=== PATIENT | female | born 1990 | race Caucasian/White ===

== ENCOUNTER 2016-12-13 03:44 | Inpatient (IN) | payer MEDICAID, OTHER ==
[2016-12-13] VITALS (11 sets, daily range): BP systolic 121–142; BP diastolic 66–84
[~2016-12-13] VITALS: Ht 172.7 cm; Wt 101.0 kg
[2016-12-13] MEDS ORDERED: PRENTAB9 PO (05:06)
[2016-12-13] MEDS ORDERED: BUTORPHANOL 2 MG/ML INJ (J0595) IV ONE (06:15)
[2016-12-13] MEDS ORDERED: PROMETHAZINE INJ 25 MG/ML VIAL (J2550) IV ONE (06:15)
[2016-12-13 06:48] LABS: MEAN CORPUSCULAR HEMOGLOBIN 31.5 pg (27.0-33.0); MEAN CORPUSCULAR HGB CONC 35.1 g/dl (32.0-36.5); MEAN CORPUSCULAR VOLUME 89.8 fl (80.0-96.0); RED CELL DISTRIBUTION WIDTH 13.2 % (11.5-14.5); WHITE BLOOD COUNT 13.7 K/mm3 (4.0-10.0)
--- NOTE | 2016-12-13 07:32 | HPE ---
DATE OF ADMISSION: 12/13/2016 HISTORY: Pretty is a 26-year-old, 3, para 1-0-1-1, at 41 weeks gestation with an expected date of confinement (EDC) of 12/06/2016 based on a last normal period and confirmed by a first trimester ultrasound. She presents to labor and delivery today with report of onset of uncomfortable contractions at approximately 0200. She does report some positive bloody show. Denies leakage of fluid. Her fetus has been active. care was initiated at [facility] in the first trimester. course has been complicated by tobacco use during . OBSTETRICAL HISTORY: In July 2009 at 39-4/7 weeks gestation, she had a 6 pound 12 ounce male, spontaneous vaginal delivery. In May 2010, she had a spontaneous miscarriage. OB LABS: Blood type A+, antibody screen negative, rubella immune, VDRL nonreactive. Early urine culture positive for E-coli for which she was treated and a no growth culture was followed up. VDRL nonreactive, rubella immune, hepatitis B surface antigen negative, HIV negative. Hepatitis C antibody negative, gonorrhea and chlamydia negative. She did decline all genetic serum screening markers. Her gestational diabetic screening (GDS) was 86 and her GBS is negative. PAST MEDICAL HISTORY: Asthma. Childhood varicella. FAMILY HISTORY: Hypertension, diabetes, thyroid dysfunction, epilepsy. SURGERIES: She had a LEEP or cryotherapy for an abnormal Pap. SOCIAL HISTORY: The patient is single. The father of baby is at bedside and supportive. She is a smoker of approximately half a pack a day. She does deny alcohol use and drug use. She denies history of any sexually transmitted infections and she denies history of abuse - physical, sexual and emotional. ALLERGIES: She is allergic to CECLOR. CURRENT MEDICATIONS: Include vitamin OBJECTIVE: Temperature 97.6, pulse 64, respirations 18, blood pressure is 125/82. heart rate 110, moderate variability, positive accelerations. She had isolated variable contractions approximately every 3 minutes. They palpate moderate to strong. Her abdomen is gravid. Estimated weight is 7-1/2 pounds, cephalic presentation. Sterile vaginal exam 5 cm, 90% effaced, -1 station. ASSESSMENT: Intrauterine at 41 weeks. heart rate category II, which is now category I. Active labor. PLAN: Admit the patient to labor and delivery. Labs as ordered. Saline lock. The patient desires IV pain medication to cope with her labor. I do anticipate continued labor progress and a normal spontaneous vaginal delivery.
[2016-12-13] MEDS ORDERED: ceFAZolin 2 GM/D5W 50 ML IV BAG (J0690) As Ordered ONE (07:44)
[2016-12-13] MEDS ORDERED: BICITRA 30ML SOLN UDC As Ordered ONE (07:44)
[2016-12-13 08:08] LABS: CORD GAS HCO3 V 21.1 MEQ/L; CORD GAS O2 SAT V 95.9 %; CORD GAS PCO2 V 39.2 mmHg; CORD GAS PH V 7.349 UNITS; CORD GAS PO2 V 60.7 mmHg; CORD GAS SBC V 21.2 MEQ/L; CORD GAS TCO2 V 22.3 MEQ/L
[2016-12-13] MEDS ORDERED: PROPOFOL 200 MG/20 ML VIAL As Ordered ONE ×2 (08:08→08:32)
[2016-12-13] MEDS ORDERED: fentaNYL 100 MCG/2 ML INJECTION (J3010) As Ordered ONE ×2 (08:08→08:34)
[2016-12-13] MEDS ORDERED: LIDOCAINE 2% INJ 100 MG/5 ML SDV (FOR ANES.) As Ordered ONE (08:08)
[2016-12-13] MEDS ORDERED: MIDAZOLAM INJ 2 MG/2 ML VIAL (J2250) As Ordered ONE ×2 (08:08→08:24)
[2016-12-13] MEDS ORDERED: OXYTOCIN INJ 10 UNITS/ML VIAL (J2590) As Ordered ONE ×2 (08:08→08:28)
[2016-12-13] MEDS ORDERED: ONDANSETRON 4MG/2ML VIAL (J2405) As Ordered ONE (08:09)
[2016-12-13] MEDS ORDERED: KETOROLAC 60 MG/2 ML VIAL (J1885) As Ordered ONE (08:09)
[2016-12-13] MEDS ORDERED: SUCCINYLCHOLINE 100 MG/5 ML SYRINGE (J0330) As Ordered ONE (08:09)
[2016-12-13] MEDS ORDERED: dexameTHASONE 4 MG/ML 1ML VIAL (J1100) As Ordered ONE (08:09)
[2016-12-13 08:13] LABS: CORD GAS ABE A -5.3; CORD GAS HCO3 A 21.2 MEQ/L; CORD GAS O2 SAT A 90.3 %; CORD GAS PCO2 A 44.4 mmHg; CORD GAS PH A 7.297 UNITS; CORD GAS PO2 A 48.9 mmHg; CORD GAS TCO2 A 22.6 MEQ/L
[2016-12-13] MEDS ORDERED: ePHEDrine SULFATE 25 MG/5 ML(5MG/ML) SYRINGE As Ordered ONE (08:45)
[2016-12-13] MEDS ORDERED: MORPHINE PCA 1MG/ML 100ML CADD As Ordered ONE (08:54)
[2016-12-13] MEDS ORDERED: DESFLURANE 240 ML INHALANT As Ordered ONE (08:57)
[2016-12-13] MEDS ORDERED: NS 1,000 ML IV SCH (09:03)
[2016-12-13] MEDS ORDERED: ONDANSETRON 4MG/2ML VIAL (J2405) IV PRN ×2 (09:15→10:15)
[2016-12-13] MEDS ORDERED: MEASLES,MUMPS,RUBELLA VACCINE INJ (MMR-II) (90707) SC SCH (09:15)
[2016-12-13] MEDS ORDERED: RHOGAM 300 MCG (1500 IU) INJ (J2790) IM SCH (09:15)
[2016-12-13] MEDS ORDERED: NALOXONE INJ 0.4 MG/1 ML VIAL (J2310) IV PRN (09:15)
[2016-12-13] MEDS ORDERED: NALBUPHINE HCL 10 MG/ML AMP (J2300) IV PRN (09:15)
[2016-12-13] MEDS ORDERED: EPIDURAL/PCA KEYS XX PRN (09:15)
[2016-12-13] MEDS ORDERED: diphenhydrAMINE INJ 50MG/ML VIAL (J1200) IV PRN (09:15)
[2016-12-13] MEDS ORDERED: MORPHINE PCA 1MG/ML 100ML CADD IV PRN (09:15)
[2016-12-13] MEDS ORDERED: fentaNYL 100 MCG/2 ML INJECTION (J3010) IV PRN (10:15)
[2016-12-13] MEDS ORDERED: HYDROmorphone HCL 1 MG/ML SYRINGE (J1170) IV PRN (10:15)
[2016-12-13] MEDS: DOCUSATE SODIUM 100 MG CAP PO SCH ×2 (14:51→20:17)
[2016-12-13] MEDS: KETOROLAC 30 MG/ML VIAL (J1885) IV SCH ×2 (14:51→20:18)
[2016-12-13] MEDS: PRENATAL VITAMIN TAB PO SCH (14:51)
[2016-12-13] MEDS: LR 1,000 ML IV SCH ×2 (14:52→17:03)
[2016-12-14] MEDS: LR 1,000 ML IV SCH (01:03)
[2016-12-14] MEDS: KETOROLAC 30 MG/ML VIAL (J1885) IV SCH ×2 (01:45→08:12)
[2016-12-14 02:05] VITALS: BP 116/59
[2016-12-14 06:18] VITALS: BP 123/65
[2016-12-14 07:08] LABS: MEAN CORPUSCULAR HEMOGLOBIN 30.9 pg (27.0-33.0); MEAN CORPUSCULAR HGB CONC 34.4 g/dl (32.0-36.5); RED CELL DISTRIBUTION WIDTH 13.2 % (11.5-14.5); WHITE BLOOD COUNT 17.1 K/mm3 (4.0-10.0)
[2016-12-14] MEDS: PRENATAL VITAMIN TAB PO SCH (09:11)
[2016-12-14] MEDS: DOCUSATE SODIUM 100 MG CAP PO SCH ×2 (09:12→22:14)
[2016-12-14] MEDS ORDERED: PERCOCET 5MG/325MG TAB PO PRN (09:30)
[2016-12-14 10:00] VITALS: BP 145/67
[2016-12-14] MEDS: PERCOCET 5MG/325MG TAB PO PRN ×2 (13:44→18:40)
[2016-12-14 14:15] VITALS: BP 142/71
[2016-12-14] MEDS: IBUPROFEN 800 MG TAB PO SCH (17:32)
[2016-12-14 18:43] VITALS: BP 136/82
[2016-12-14 22:07] VITALS: BP 137/90
[2016-12-15] MEDS: IBUPROFEN 800 MG TAB PO SCH ×2 (00:23→08:06)
[2016-12-15 05:59] VITALS: BP 133/82
[2016-12-15] MEDS: DOCUSATE SODIUM 100 MG CAP PO SCH (08:06)
[2016-12-15] MEDS: PRENATAL VITAMIN TAB PO SCH (08:06)
[2016-12-15] MEDS: PERCOCET 5MG/325MG TAB PO PRN (08:25)
[2016-12-15] MEDS ORDERED: OXYC1TAB23 PO (10:17)
[2016-12-15] MEDS ORDERED: IBUP600T26 PO (10:19)
[2016-12-15] MEDS ORDERED: COLA100C PO (10:19)
[2016-12-15] MEDS ORDERED: ZOFR4TAB3 PO (10:20)
[2016-12-15] MEDS ORDERED: PERC5TAB6 PO (11:31)
== END 2016-12-15 12:20 | disposition home or self-care (01) | DRG 540 ==
LOC: M LDO 03:44 → M LDI 05:59 → M OBS 10:11
PROVIDERS: ADMIT Advanced Practice Midwife; ATTEND Advanced Practice Midwife
PROC: 10D00Z1 Extraction of Products of Conception, Low, Open Approach (ICD-10-PCS; principal; 2016-12-13 08:52)
DX: O76 Abnormality in fetal heart rate and rhythm complicating labor and delivery (principal); Z37.0 Single live birth; O48.0 Post-term pregnancy; F17.200 Nicotine dependence, unspecified, uncomplicated; O99.334 Smoking (tobacco) complicating childbirth; Z3A.41 41 weeks gestation of pregnancy